=== PATIENT | male | born 1960 | race Caucasian/White ===

== ENCOUNTER 2021-05-13 02:25 | Emergency (ER) | payer MEDICAID ==
[2021-05-13] MEDS ORDERED: Acetaminophen/HYDROcodone 325-5 MG Tab PO ONE (02:26)
[2021-05-13] MEDS ORDERED: Hydrocortisone/Neomycin/Polymyxin B Ophth Susp 7.5 ML Bottle EYELF ONE (02:26)
== END 2021-05-13 03:00 | disposition home or self-care (01) ==
LOC: FB.ED 02:25
DX: S05.02XA Injury of conjunctiva and corneal abrasion without foreign body, left eye, initial encounter (principal); W50.4XXA Accidental scratch by another person, initial encounter
CPT/HCPCS: 99283; A9270-GY

== ENCOUNTER 2021-09-06 11:49 | Emergency (ER) | payer MEDICAID ==
[2021-09-06] MEDS ORDERED: predniSONE 20 MG Tab PO ONE (11:50)
[2021-09-06] MEDS ORDERED: Azithromycin 250 MG Tab PO ONE (11:50)
[2021-09-06 12:07] VITALS: BP 121/67; PULSE 72
[2021-09-06 12:41] LABS: ESTIMATED GFR 75 mL/min (>60)
== END 2021-09-06 13:10 | disposition home or self-care (01) ==
LOC: FB.ED 11:49
DX: J40 Bronchitis, not specified as acute or chronic (principal); I10 Essential (primary) hypertension; Z87.891 Personal history of nicotine dependence; Z88.1 Allergy status to other antibiotic agents; Z91.030 Bee allergy status; Z91.040 Latex allergy status; Z88.8 Allergy status to other drugs, medicaments and biological substances; Z91.041 Radiographic dye allergy status; Z20.822 Contact with and (suspected) exposure to COVID-19
CPT/HCPCS: 36415; 71046; 80048; 85025; 99282; 99284; A9270-GY; J7512; U0002

== ENCOUNTER 2022-03-01 15:17 | Emergency (ER) | payer MEDICAID ==
[2022-03-01] MEDS ORDERED: Acetaminophen/HYDROcodone 325-5 MG Tab PO ONE (15:18)
[2022-03-01] MEDS ORDERED: Morphine 4 MG/ML VIAL IM ONE (16:00)
[2022-03-01 16:18] VITALS: BP 177/98; PULSE 87
== END 2022-03-01 17:30 | disposition home or self-care (01) ==
LOC: FB.ED 15:17
DX: M54.12 Radiculopathy, cervical region (principal); G89.29 Other chronic pain; M54.2 Cervicalgia; J44.9 Chronic obstructive pulmonary disease, unspecified; I10 Essential (primary) hypertension; Z88.6 Allergy status to analgesic agent; Z91.030 Bee allergy status; Z88.1 Allergy status to other antibiotic agents; Z91.040 Latex allergy status; Z88.2 Allergy status to sulfonamides; Z88.8 Allergy status to other drugs, medicaments and biological substances
CPT/HCPCS: 96372; 99283; A9270; J2270

== ENCOUNTER 2022-03-08 17:36 | Emergency (ER) | payer MEDICAID ==
[2022-03-08] MEDS: Morphine 4 MG/ML VIAL IM ONE (19:31)
[2022-03-08] MEDS: Ondansetron 4 MG Tab.DIS PO ONE (19:53)
[2022-03-08 20:24] VITALS: BP 167/84; PULSE 76
== END 2022-03-08 20:02 | disposition home or self-care (01) ==
LOC: FB.ED 17:36
DX: M47.812 Spondylosis without myelopathy or radiculopathy, cervical region (principal); G89.29 Other chronic pain; I10 Essential (primary) hypertension; J44.9 Chronic obstructive pulmonary disease, unspecified; F17.210 Nicotine dependence, cigarettes, uncomplicated; Z96.653 Presence of artificial knee joint, bilateral; Z88.6 Allergy status to analgesic agent; Z88.8 Allergy status to other drugs, medicaments and biological substances; Z91.030 Bee allergy status; Z88.1 Allergy status to other antibiotic agents; Z88.5 Allergy status to narcotic agent; Z91.041 Radiographic dye allergy status; Z91.040 Latex allergy status; Z88.2 Allergy status to sulfonamides
CPT/HCPCS: 96372; 99283; J2270; Q0162

== ENCOUNTER 2022-03-14 20:05 | Emergency (ER) | payer MEDICAID ==
[2022-03-14] MEDS ORDERED: Morphine 10 MG/ML SDV IM ONE (20:46)
[2022-03-14 23:21] VITALS: BP 138/82; PULSE 71
== END 2022-03-14 21:30 | disposition home or self-care (01) ==
LOC: FB.ED 20:05
DX: G44.209 Tension-type headache, unspecified, not intractable (principal); E03.9 Hypothyroidism, unspecified; I10 Essential (primary) hypertension; J44.9 Chronic obstructive pulmonary disease, unspecified; Z91.030 Bee allergy status; Z88.1 Allergy status to other antibiotic agents; Z88.8 Allergy status to other drugs, medicaments and biological substances; Z91.040 Latex allergy status; Z91.041 Radiographic dye allergy status; Z88.5 Allergy status to narcotic agent; Z79.01 Long term (current) use of anticoagulants
CPT/HCPCS: 96372; 99283; J2270

== ENCOUNTER 2022-03-29 17:36 | Emergency (ER) | payer MEDICAID ==
[2022-03-29] MEDS ORDERED: Morphine 4 MG/ML VIAL IM ONE (17:44)
[2022-03-29 17:51] VITALS: BP 184/83; PULSE 67
[2022-03-29] MEDS ORDERED: Acetaminophen/oxyCODONE 325-5 MG Tab PO STA (18:43)
[2022-03-29] MEDS ORDERED: Acetaminophen/oxyCODONE 325-5 MG Tab PO ONE (18:46)
== END 2022-03-29 18:50 | disposition home or self-care (01) ==
LOC: FB.ED 17:36
DX: G89.29 Other chronic pain (principal); M25.551 Pain in right hip; M25.552 Pain in left hip; M50.90 Cervical disc disorder, unspecified, unspecified cervical region; J44.9 Chronic obstructive pulmonary disease, unspecified; I10 Essential (primary) hypertension; Z88.6 Allergy status to analgesic agent; Z91.030 Bee allergy status; Z88.1 Allergy status to other antibiotic agents; Z91.040 Latex allergy status; Z88.2 Allergy status to sulfonamides; Z79.01 Long term (current) use of anticoagulants; Z79.899 Other long term (current) drug therapy; Z86.16 Personal history of COVID-19
CPT/HCPCS: 96372; 99283; A9270-GY; J2270

== ENCOUNTER 2022-04-05 18:06 | Emergency (ER) | payer MEDICAID ==
[2022-04-05 19:07] VITALS: BP 175/88; PULSE 81
[2022-04-05] MEDS: oxyCODONE 5 MG Tab PO ONE (19:35)
== END 2022-04-05 19:41 | disposition home or self-care (01) ==
LOC: FB.ED 18:06
DX: M54.2 Cervicalgia (principal); I10 Essential (primary) hypertension; J44.9 Chronic obstructive pulmonary disease, unspecified; Z88.6 Allergy status to analgesic agent; Z88.8 Allergy status to other drugs, medicaments and biological substances; Z91.030 Bee allergy status; Z88.1 Allergy status to other antibiotic agents; Z91.041 Radiographic dye allergy status; Z91.040 Latex allergy status; Z88.5 Allergy status to narcotic agent; Z88.2 Allergy status to sulfonamides; Z79.01 Long term (current) use of anticoagulants; Z79.899 Other long term (current) drug therapy
CPT/HCPCS: 99283; A9270-GY

== ENCOUNTER 2022-04-12 18:59 | Emergency (ER) | payer MEDICAID ==
[2022-04-12 19:51] VITALS: BP 175/92; PULSE 86
== END 2022-04-12 21:45 | disposition home or self-care (01) ==
LOC: FB.ED 18:59
DX: M54.2 Cervicalgia (principal); G89.29 Other chronic pain; M62.838 Other muscle spasm; J44.9 Chronic obstructive pulmonary disease, unspecified; I10 Essential (primary) hypertension; E03.9 Hypothyroidism, unspecified; Z91.030 Bee allergy status; Z88.1 Allergy status to other antibiotic agents; Z91.040 Latex allergy status; Z88.8 Allergy status to other drugs, medicaments and biological substances; Z91.041 Radiographic dye allergy status; Z79.01 Long term (current) use of anticoagulants
CPT/HCPCS: 36415; 85610; 96372; 99283; J3360

== ENCOUNTER 2022-04-13 01:59 | Emergency (ER) | payer MEDICAID ==
[2022-04-13 02:34] VITALS: BP 187/108; PULSE 83
== END 2022-04-13 02:21 | disposition home or self-care (01) ==
LOC: FB.ED 01:59
DX: G89.29 Other chronic pain (principal); M54.2 Cervicalgia; F11.29 Opioid dependence with unspecified opioid-induced disorder; I10 Essential (primary) hypertension; J44.9 Chronic obstructive pulmonary disease, unspecified; Z88.6 Allergy status to analgesic agent; Z91.030 Bee allergy status; Z88.1 Allergy status to other antibiotic agents; Z91.041 Radiographic dye allergy status; Z91.040 Latex allergy status; Z88.2 Allergy status to sulfonamides; Z88.8 Allergy status to other drugs, medicaments and biological substances; Z79.899 Other long term (current) drug therapy; Z79.01 Long term (current) use of anticoagulants; Z86.16 Personal history of COVID-19
CPT/HCPCS: 99283

== ENCOUNTER 2022-04-25 18:49 | Emergency (ER) | payer MEDICAID ==
[2022-04-25] MEDS ORDERED: Promethazine 25 MG/ML SDV IM STA (19:45)
[2022-04-25] MEDS ORDERED: Morphine 4 MG/ML VIAL IM ONE (20:46)
[2022-04-26 02:40] VITALS: BP 155/97; PULSE 87
== END 2022-04-25 21:20 | disposition home or self-care (01) ==
LOC: FB.ED 18:49
DX: M50.30 Other cervical disc degeneration, unspecified cervical region (principal); I10 Essential (primary) hypertension; J44.9 Chronic obstructive pulmonary disease, unspecified; K21.9 Gastro-esophageal reflux disease without esophagitis; E03.9 Hypothyroidism, unspecified; Z87.891 Personal history of nicotine dependence; Z91.030 Bee allergy status; Z88.1 Allergy status to other antibiotic agents; Z88.8 Allergy status to other drugs, medicaments and biological substances; Z91.040 Latex allergy status; Z91.041 Radiographic dye allergy status; Z86.16 Personal history of COVID-19
CPT/HCPCS: 96372; 99283; J2270; J2550

== ENCOUNTER 2022-05-03 17:33 | Emergency (ER) | payer MEDICAID ==
[2022-05-03] MEDS ORDERED: Acetaminophen/oxyCODONE 325-5 MG Tab PO STA (18:15)
[2022-05-03 18:30] VITALS: BP 161/94; PULSE 98
== END 2022-05-03 18:34 | disposition home or self-care (01) ==
LOC: FB.ED 17:33
DX: M50.90 Cervical disc disorder, unspecified, unspecified cervical region (principal); I10 Essential (primary) hypertension; J44.9 Chronic obstructive pulmonary disease, unspecified; Z86.16 Personal history of COVID-19; Z91.030 Bee allergy status; Z88.1 Allergy status to other antibiotic agents; Z88.8 Allergy status to other drugs, medicaments and biological substances; Z91.040 Latex allergy status; Z91.041 Radiographic dye allergy status; Z79.01 Long term (current) use of anticoagulants; Z87.891 Personal history of nicotine dependence
CPT/HCPCS: 99283; A9270-GY

== ENCOUNTER 2022-05-10 17:18 | Emergency (ER) | payer MEDICAID ==
[2022-05-10] MEDS ORDERED: Sodium Chloride 0.9% 1,000 ML IV ONE (17:42)
[2022-05-10] MEDS ORDERED: Ketorolac 30 MG/ML SDV IVPUSH ONE (17:44)
[2022-05-10 18:04] LABS: ESTIMATED GFR 84 mL/min (>60)
[2022-05-10 21:24] VITALS: BP 176/87; PULSE 80
== END 2022-05-10 20:00 | disposition home or self-care (01) ==
LOC: FB.ED 17:18
DX: A08.4 Viral intestinal infection, unspecified (principal); E86.0 Dehydration; J44.9 Chronic obstructive pulmonary disease, unspecified; I10 Essential (primary) hypertension; Z86.16 Personal history of COVID-19; Z87.891 Personal history of nicotine dependence; Z91.030 Bee allergy status; Z88.8 Allergy status to other drugs, medicaments and biological substances; Z88.1 Allergy status to other antibiotic agents; Z91.040 Latex allergy status; Z91.041 Radiographic dye allergy status; Z79.01 Long term (current) use of anticoagulants; Z20.822 Contact with and (suspected) exposure to COVID-19
CPT/HCPCS: 36415; 80053; 81001; 83605; 83690; 85025; 85610; 86140; 96361; 96374; 99284-25; J1885; J7030; U0002

== ENCOUNTER 2022-05-17 19:11 | Emergency (ER) | payer MEDICAID ==
[2022-05-17 19:26] VITALS: BP 156/86; PULSE 103
[2022-05-17] MEDS ORDERED: Morphine 4 MG/ML VIAL IM ONE (19:39)
[2022-05-17] MEDS ORDERED: Ondansetron 4 MG/2 ML SDV IM ONE (19:39)
== END 2022-05-17 20:00 | disposition home or self-care (01) ==
LOC: FB.ED 19:11
DX: K29.90 Gastroduodenitis, unspecified, without bleeding (principal); I10 Essential (primary) hypertension; J44.9 Chronic obstructive pulmonary disease, unspecified; Z88.1 Allergy status to other antibiotic agents; Z88.2 Allergy status to sulfonamides; Z88.8 Allergy status to other drugs, medicaments and biological substances; Z91.030 Bee allergy status; Z91.040 Latex allergy status; Z79.01 Long term (current) use of anticoagulants; Z88.6 Allergy status to analgesic agent
CPT/HCPCS: 96372; 99283; J2270; J2405

== ENCOUNTER 2022-05-24 17:36 | Emergency (ER) | payer MEDICAID ==
[2022-05-24 18:27] LABS: ESTIMATED GFR 75 mL/min (>60)
[2022-05-24] MEDS ORDERED: hydrOXYzine HCl 50 MG/ML SDV IM ONE (18:47)
[2022-05-24] MEDS ORDERED: Morphine 4 MG/ML VIAL IM ONE (18:47)
[2022-05-24 19:13] VITALS: BP 156/87; PULSE 99
== END 2022-05-24 19:10 | disposition home or self-care (01) ==
LOC: FB.ED 17:36
DX: R11.2 Nausea with vomiting, unspecified (principal); R51.9 Headache, unspecified; I10 Essential (primary) hypertension; J44.9 Chronic obstructive pulmonary disease, unspecified; Z72.0 Tobacco use; Z86.16 Personal history of COVID-19; Z88.6 Allergy status to analgesic agent; Z88.8 Allergy status to other drugs, medicaments and biological substances; Z91.030 Bee allergy status; Z88.1 Allergy status to other antibiotic agents; Z91.041 Radiographic dye allergy status; Z88.5 Allergy status to narcotic agent; Z91.040 Latex allergy status; Z88.2 Allergy status to sulfonamides; Z79.899 Other long term (current) drug therapy; Z79.01 Long term (current) use of anticoagulants
CPT/HCPCS: 36415; 80053; 83605; 83735; 85025; 96372; 99284; J2270; J3410

== ENCOUNTER 2022-06-13 00:54 | Emergency (ER) | payer MEDICAID ==
[2022-06-13 01:14] VITALS: BP 171/89; PULSE 96
[2022-06-13] MEDS ORDERED: Alum Hydroxide/Mag Hydroxide 15 ML, Lidocaine 2% 15 ML PO ONE ×2 (01:32)
[2022-06-13] MEDS ORDERED: Ondansetron 4 MG Tab.DIS PO ONE (01:32)
[2022-06-13] MEDS ORDERED: Morphine 4 MG/ML VIAL IM ONE (01:32)
== END 2022-06-13 01:58 | disposition home or self-care (01) ==
LOC: FB.ED 00:54
DX: K29.70 Gastritis, unspecified, without bleeding (principal); K29.80 Duodenitis without bleeding; M50.30 Other cervical disc degeneration, unspecified cervical region; I10 Essential (primary) hypertension; Z87.891 Personal history of nicotine dependence; Z86.16 Personal history of COVID-19; Z91.030 Bee allergy status; Z88.8 Allergy status to other drugs, medicaments and biological substances; Z88.1 Allergy status to other antibiotic agents; Z91.040 Latex allergy status; Z91.041 Radiographic dye allergy status; Z79.01 Long term (current) use of anticoagulants
CPT/HCPCS: 96372; 99283; A9270; J2270; Q0162

== ENCOUNTER 2022-06-13 23:46 | Emergency (ER) | payer MEDICAID ==
[2022-06-14 00:10] VITALS: BP 161/86; PULSE 96
[2022-06-14] MEDS ORDERED: Acetaminophen/oxyCODONE 325-5 MG Tab PO STA (00:14)
== END 2022-06-14 00:20 | disposition home or self-care (01) ==
LOC: FB.ED 23:46
DX: M50.90 Cervical disc disorder, unspecified, unspecified cervical region (principal); G89.29 Other chronic pain; K21.9 Gastro-esophageal reflux disease without esophagitis; I10 Essential (primary) hypertension; J44.9 Chronic obstructive pulmonary disease, unspecified; Z86.16 Personal history of COVID-19; Z87.891 Personal history of nicotine dependence; Z79.01 Long term (current) use of anticoagulants; Z79.899 Other long term (current) drug therapy; Z88.1 Allergy status to other antibiotic agents; Z88.8 Allergy status to other drugs, medicaments and biological substances; Z91.030 Bee allergy status
CPT/HCPCS: 99283; A9270

== ENCOUNTER 2022-06-28 14:36 | Emergency (ER) | payer MEDICAID ==
[2022-06-28] MEDS ORDERED: Ketorolac 30 MG/ML SDV IM ONE (15:12)
[2022-06-28 15:53] VITALS: BP 161/90; PULSE 90
== END 2022-06-28 15:44 | disposition home or self-care (01) ==
LOC: FB.ED 14:36
DX: M47.812 Spondylosis without myelopathy or radiculopathy, cervical region (principal); I10 Essential (primary) hypertension; J44.9 Chronic obstructive pulmonary disease, unspecified; F17.210 Nicotine dependence, cigarettes, uncomplicated; K21.9 Gastro-esophageal reflux disease without esophagitis; Z79.01 Long term (current) use of anticoagulants; Z86.16 Personal history of COVID-19; Z79.899 Other long term (current) drug therapy; Z88.2 Allergy status to sulfonamides; Z91.040 Latex allergy status; Z88.1 Allergy status to other antibiotic agents; Z88.5 Allergy status to narcotic agent; Z88.8 Allergy status to other drugs, medicaments and biological substances; Z91.030 Bee allergy status
CPT/HCPCS: 96372; 99283; J1885

== ENCOUNTER 2022-06-28 19:21 | Emergency (ER) | payer MEDICAID ==
[2022-06-28] MEDS ORDERED: OLANZapine 10 MG Vial IM ONE (20:04)
[2022-06-28 21:03] VITALS: BP 155/92; PULSE 99
== END 2022-06-28 20:20 | disposition home or self-care (01) ==
LOC: FB.ED 19:21
DX: M47.812 Spondylosis without myelopathy or radiculopathy, cervical region (principal); I10 Essential (primary) hypertension; J44.9 Chronic obstructive pulmonary disease, unspecified; F17.210 Nicotine dependence, cigarettes, uncomplicated; Z86.16 Personal history of COVID-19; K21.9 Gastro-esophageal reflux disease without esophagitis; Z79.01 Long term (current) use of anticoagulants; Z79.899 Other long term (current) drug therapy; Z88.1 Allergy status to other antibiotic agents; Z88.2 Allergy status to sulfonamides; Z88.8 Allergy status to other drugs, medicaments and biological substances; Z91.040 Latex allergy status; Z91.030 Bee allergy status; Z88.5 Allergy status to narcotic agent
CPT/HCPCS: 96372; 99283; J2405

== ENCOUNTER 2022-07-05 23:18 | Emergency (ER) | payer MEDICAID ==
[2022-07-05] MEDS ORDERED: Lidocaine 4% 1 each Patch TOP STA (23:28)
[2022-07-05] MEDS ORDERED: Cyclobenzaprine 10 MG Tab PO ONE (23:28)
[2022-07-05] MEDS ORDERED: Ketorolac 30 MG/ML SDV IM STA (23:28)
[2022-07-05 23:40] VITALS: BP 150/78; PULSE 86
== END 2022-07-05 23:54 | disposition home or self-care (01) ==
LOC: FB.ED 23:18
DX: M50.30 Other cervical disc degeneration, unspecified cervical region (principal); I10 Essential (primary) hypertension; J44.9 Chronic obstructive pulmonary disease, unspecified; Z91.030 Bee allergy status; Z88.1 Allergy status to other antibiotic agents; Z88.8 Allergy status to other drugs, medicaments and biological substances; Z91.041 Radiographic dye allergy status; Z91.040 Latex allergy status; Z79.01 Long term (current) use of anticoagulants; Z86.16 Personal history of COVID-19
CPT/HCPCS: 96372; 99283; A9270-GY; J1885

== ENCOUNTER 2022-07-13 00:31 | Emergency (ER) | payer MEDICAID ==
[2022-07-13] MEDS ORDERED: OLANZapine 10 MG Vial IM ONE (01:09)
[2022-07-13 01:33] VITALS: BP 161/92; PULSE 109
== END 2022-07-13 01:25 | disposition home or self-care (01) ==
LOC: FB.ED 00:31
DX: R11.2 Nausea with vomiting, unspecified (principal); G89.29 Other chronic pain; F11.29 Opioid dependence with unspecified opioid-induced disorder; I10 Essential (primary) hypertension; J44.9 Chronic obstructive pulmonary disease, unspecified; M19.90 Unspecified osteoarthritis, unspecified site; Z72.0 Tobacco use; Z91.030 Bee allergy status; Z88.1 Allergy status to other antibiotic agents; Z91.041 Radiographic dye allergy status; Z91.040 Latex allergy status; Z88.8 Allergy status to other drugs, medicaments and biological substances; Z79.01 Long term (current) use of anticoagulants; Z79.899 Other long term (current) drug therapy
CPT/HCPCS: 96372; 99283; J2405

== ENCOUNTER 2022-07-19 20:24 | Emergency (ER) | payer MEDICAID ==
[2022-07-19] MEDS ORDERED: Ondansetron 4 MG Tab.DIS PO ONE (20:33)
[2022-07-19] MEDS ORDERED: Prochlorperazine 10 MG/2 ML SDV IVPUSH ONE (20:42)
[2022-07-19] MEDS ORDERED: Ondansetron 4 MG/2 ML SDV IVPUSH ONE (20:42)
[2022-07-19] MEDS ORDERED: Sodium Chloride 0.9% 1,000 ML IV SCH (20:45)
[2022-07-19] MEDS: Sodium Chloride 0.9% 10 ML Syringe FLUSH PRN ×2 (20:58→22:10)
[2022-07-19] MEDS ORDERED: Ketorolac 30 MG/ML SDV IVPUSH ONE (21:53)
[2022-07-19 22:07] LABS: BLOOD UREA NITROGEN,BUN 17 mg/dL (7-18); BUN/CREATININE RATIO 14.2 (9-20); CALCIUM 8.5 mg/dL (8.6-10.2); CARBON DIOXIDE,CO2 26 mmol/L (21-32); CHLORIDE,CL 97 mmol/L (100-110); CREATININE 1.2 mg/dL (0.70-1.30); EST CRCL DRUG DOSING (CG) 55.86 mL/min; ESTIMATED GFR 68 mL/min (>60); GLUCOSE RANDOM 116 mg/dL (80-116); POTASSIUM,K 3.5 mmol/L (3.5-5.3); SODIUM,NA 134 mmol/L (135-145)
[2022-07-19 22:12] LABS: ALANINE AMINOTRANSFERASE,ALT 45 U/L (12-36); ALBUMIN 3.2 g/dL (3.2-4.6); ALKALINE PHOSPHATASE 74 IU/L (56-112); AMYLASE 57 U/L (25-115); ASPARTATE AMNIOTRANSFERASE,AST 23 IU/L (5-25); PROTEIN TOTAL,TP 6.4 g/dL (6.0-8.0)
[2022-07-19 22:19] LABS: INR 0.95 (1.00-1.24); PROTHROMBIN TIME 9.8 sec (9.0-11.1)
[2022-07-19 22:21] LABS: PTT,PARTIAL THROMBOPLSTIN TIME 25.8 SECONDS (24.4-33.2)
[2022-07-19 22:22] LABS: BASOPHILS PERCENT AUTO 0.1 % (0.3-3.8); EOSINOPHILS ABSOLUTE AUTO 0.1 x10-3/uL (0.0-0.6); EOSINOPHILS PERCENT AUTO 0.6 % (0.1-6.8); HEMOGLOBIN 13.6 g/dL (12.9-17.7); LYMPHOCYTES ABSOLUTE AUTO 1.6 x10-3/uL (0.5-4.5); MEAN CORPUSCULAR HEMOGLOBIN 30.3 pg (27.0-33.3); MEAN CORPUSCULAR VOLUME 89.1 fL (80.8-98.7); MEAN PLATELET VOLUME 9.2 fL (6.7-11.0); MONOCYTES ABSOLUTE AUTO 1.1 x10-3/uL (0.0-1.2); MONOCYTES PERCENT AUTO 7.5 % (5.5-15.2); NEUTROPHILS ABSOLUTE AUTO 11.9 x10-3/uL (1.7-6.9); NEUTROPHILS PERCENT AUTO 80.8 % (40.3-71.8); PLATELET COUNT,PLT 181 x10(3)uL (117-477); RED BLOOD CELL COUNT 4.48 x10(6)uL (3.90-5.90); RED CELL DISTRIBUTION WIDTH 15.3 % (12.4-15.0); WHITE BLOOD CELL COUNT,WBC 14.7 x10-3/uL (3.2-10.1)
[2022-07-19 22:24] LABS: BILIRUBIN TOTAL 0.5 mg/dL (0.1-1.3)
[2022-07-19 22:39] LABS: APPEARANCE,URINE CLEAR (CLEAR); COLOR,URINE YELLOW (YELLOW)
[2022-07-19 22:40] LABS: BACTERIA,URINE RARE (NS); BILIRUBIN,URINE NEGATIVE (NEGATIVE); EPITHELIAL CELLS,URINE OCCASIONAL; GLUCOSE,URINE NORMAL (NORMAL); KETONES,URINE NEGATIVE (NEGATIVE); LEUKOCYTE ESTERASE,URINE NEGATIVE (NEGATIVE); NITRITE,URINE NEGATIVE (NEGATIVE); OCCULT BLOOD,URINE NEGATIVE (NEGATIVE); PROTEIN,URINE NEGATIVE (NEGATIVE); RBC,URINE 0-5 (0-5); UROBILINOGEN,URINE NORMAL (NEGATIVE); WBC,URINE 0-5 (0-5)
[2022-07-20 00:26] VITALS: BP 151/82; PULSE 95
== END 2022-07-19 22:14 | disposition home or self-care (01) ==
LOC: FB.ED 20:24
DX: R10.84 Generalized abdominal pain (principal); R11.2 Nausea with vomiting, unspecified; E87.1 Hypo-osmolality and hyponatremia; E83.51 Hypocalcemia; F11.29 Opioid dependence with unspecified opioid-induced disorder; I10 Essential (primary) hypertension; J44.9 Chronic obstructive pulmonary disease, unspecified; K21.9 Gastro-esophageal reflux disease without esophagitis; Z87.891 Personal history of nicotine dependence; Z86.16 Personal history of COVID-19; Z79.01 Long term (current) use of anticoagulants; Z79.899 Other long term (current) drug therapy; Z88.2 Allergy status to sulfonamides; Z88.8 Allergy status to other drugs, medicaments and biological substances; Z88.1 Allergy status to other antibiotic agents; Z91.041 Radiographic dye allergy status; Z91.040 Latex allergy status; Z91.030 Bee allergy status
CPT/HCPCS: 36415; 80053; 81001; 82150; 83690; 85025; 85610; 85730; 96361; 96374; 96375; 99284; J0780; J1885; J2405; J3490; J7030

== ENCOUNTER 2022-07-28 15:57 | Inpatient (IN) | payer MEDICAID ==
[2022-07-28] MEDS ORDERED: Polyethylene Glycol 3350 Powder 17 GM Packet PO PRN (17:02)
[2022-07-28] MEDS ORDERED: oxyCODONE 5 MG Tab PO PRN (17:02)
[2022-07-28] MEDS ORDERED: Baclofen 10 MG Tab PO PRN (17:09)
[2022-07-28] MEDS: Sodium Chloride 0.9% 10 ML Syringe FLUSH PRN (17:10)
[2022-07-28] MEDS: Sodium Chloride 0.9% 1,000 ML IV SCH (17:17)
[2022-07-28] MEDS: Azithromycin 500 MG in Sodium Chloride 0.9% 250 ML IV SCH (17:20)
[2022-07-28] MEDS: Benzonatate 100 MG Cap PO PRN (17:29)
[2022-07-28] MEDS: oxyCODONE 5 MG Tab PO PRN ×2 (17:31→21:27)
[2022-07-28] MEDS: Acetaminophen 325 MG Tab PO PRN (17:57)
[2022-07-28] MEDS ORDERED: Rivaroxaban 15 MG Tab PO SCH (18:00)
[2022-07-28] MEDS: Ertapenem 1 GM in Sodium Chloride 0.9% 50 ML IV SCH (18:28)
[2022-07-28] MEDS ORDERED: hydrOXYzine HCl 25 MG Tab PO PRN (19:10)
[2022-07-28] MEDS: Montelukast 10 MG Tab PO SCH (21:22)
[2022-07-28] MEDS: Sennosides 8.6 MG Tab PO SCH (21:22)
[2022-07-29] MEDS: Sodium Chloride 0.9% 1,000 ML IV SCH (02:25)
[2022-07-29] MEDS: oxyCODONE 5 MG Tab PO PRN ×5 (03:35→23:12)
[2022-07-29 06:22] LABS: BASOPHILS PERCENT AUTO 0.2 % (0.3-3.8); EOSINOPHILS ABSOLUTE AUTO 0.1 x10-3/uL (0.0-0.6); HEMATOCRIT 33.3 % (38.3-50.1); HEMOGLOBIN 11.4 g/dL (12.9-17.7); LYMPHOCYTES ABSOLUTE AUTO 1.6 x10-3/uL (0.5-4.5); LYMPHOCYTES PERCENT AUTO 15.7 % (15.8-45.3); MEAN CORPUSCULAR HEMOGLOBIN 30.9 pg (27.0-33.3); MEAN CORPUSCULAR HGB CONC 34.3 g/dL (28.7-35.3); MEAN PLATELET VOLUME 8.5 fL (6.7-11.0); MONOCYTES ABSOLUTE AUTO 0.8 x10-3/uL (0.0-1.2); MONOCYTES PERCENT AUTO 7.8 % (5.5-15.2); NEUTROPHILS ABSOLUTE AUTO 7.7 x10-3/uL (1.7-6.9); NEUTROPHILS PERCENT AUTO 75.3 % (40.3-71.8); PLATELET COUNT,PLT 155 x10(3)uL (117-477); RED CELL DISTRIBUTION WIDTH 15.4 % (12.4-15.0); WHITE BLOOD CELL COUNT,WBC 10.2 x10-3/uL (3.2-10.1)
[2022-07-29 06:26] LABS: BLOOD UREA NITROGEN,BUN 20 mg/dL (7-18); BUN/CREATININE RATIO 15.4 (9-20); CARBON DIOXIDE,CO2 25 mmol/L (21-32); CHLORIDE,CL 103 mmol/L (100-110); CREATININE 1.3 mg/dL (0.70-1.30); ESTIMATED GFR 61 mL/min (>60); GLUCOSE RANDOM 101 mg/dL (80-116); POTASSIUM,K 3.9 mmol/L (3.5-5.3); SODIUM,NA 136 mmol/L (135-145)
[2022-07-29] MEDS ORDERED: Albuterol/Ipratropium 3.0-0.5 MG/3 ML Neb Soln NEB PRN (08:41)
[2022-07-29] MEDS: Lisinopril 10 MG Tab PO SCH (08:59)
[2022-07-29] MEDS: Pantoprazole 40 MG Tab.CR PO SCH (08:59)
[2022-07-29] MEDS: Benzonatate 100 MG Cap PO PRN ×2 (08:59→20:17)
[2022-07-29] MEDS: Multivitamins with Iron/Calcium/Folic Acid/Minerals Tab PO SCH (11:56)
[2022-07-29] MEDS: Acetaminophen 325 MG Tab PO PRN (11:57)
[2022-07-29] MEDS: Azithromycin 500 MG in Sodium Chloride 0.9% 250 ML IV SCH (16:29)
[2022-07-29] MEDS: Sodium Chloride 0.9% 10 ML Syringe FLUSH PRN ×2 (16:30→17:34)
[2022-07-29] MEDS: Ertapenem 1 GM in Sodium Chloride 0.9% 50 ML IV SCH (17:34)
[2022-07-29] MEDS: Rivaroxaban 10 MG Tab PO SCH (17:37)
[2022-07-29] MEDS: Sennosides 8.6 MG Tab PO SCH (20:17)
[2022-07-29] MEDS: Montelukast 10 MG Tab PO SCH (20:17)
[2022-07-30] MEDS: Benzonatate 100 MG Cap PO PRN ×2 (05:34→21:26)
[2022-07-30] MEDS: oxyCODONE 5 MG Tab PO PRN ×5 (05:34→22:53)
[2022-07-30 06:17] LABS: BASOPHILS PERCENT AUTO 0.3 % (0.3-3.8); EOSINOPHILS ABSOLUTE AUTO 0.2 x10-3/uL (0.0-0.6); EOSINOPHILS PERCENT AUTO 2.1 % (0.1-6.8); HEMATOCRIT 33.1 % (38.3-50.1); HEMOGLOBIN 11.2 g/dL (12.9-17.7); LYMPHOCYTES ABSOLUTE AUTO 1.8 x10-3/uL (0.5-4.5); LYMPHOCYTES PERCENT AUTO 20.6 % (15.8-45.3); MEAN CORPUSCULAR HEMOGLOBIN 30.4 pg (27.0-33.3); MEAN CORPUSCULAR HGB CONC 33.7 g/dL (28.7-35.3); MEAN CORPUSCULAR VOLUME 90.1 fL (80.8-98.7); MEAN PLATELET VOLUME 8.5 fL (6.7-11.0); MONOCYTES ABSOLUTE AUTO 0.6 x10-3/uL (0.0-1.2); MONOCYTES PERCENT AUTO 7.4 % (5.5-15.2); NEUTROPHILS PERCENT AUTO 69.6 % (40.3-71.8); PLATELET COUNT,PLT 160 x10(3)uL (117-477); RED BLOOD CELL COUNT 3.68 x10(6)uL (3.90-5.90); RED CELL DISTRIBUTION WIDTH 15.5 % (12.4-15.0); WHITE BLOOD CELL COUNT,WBC 8.7 x10-3/uL (3.2-10.1)
[2022-07-30 06:27] LABS: A/G RATIO 0.9; ALANINE AMINOTRANSFERASE,ALT 19 U/L (12-36); ALBUMIN 2.6 g/dL (3.2-4.6); ALKALINE PHOSPHATASE 55 IU/L (56-112); ASPARTATE AMNIOTRANSFERASE,AST 20 IU/L (5-25); BILIRUBIN TOTAL 0.4 mg/dL (0.1-1.3); BLOOD UREA NITROGEN,BUN 13 mg/dL (7-18); BUN/CREATININE RATIO 11.8 (9-20); CALCIUM 8.3 mg/dL (8.6-10.2); CARBON DIOXIDE,CO2 28 mmol/L (21-32); CHLORIDE,CL 103 mmol/L (100-110); CREATININE 1.1 mg/dL (0.70-1.30); EST CRCL DRUG DOSING (CG) 61.22 mL/min; ESTIMATED GFR 75 mL/min (>60); GLUCOSE RANDOM 101 mg/dL (80-116); MAGNESIUM 1.5 mg/dL (1.8-2.5); PROTEIN TOTAL,TP 5.6 g/dL (6.0-8.0); SODIUM,NA 137 mmol/L (135-145)
[2022-07-30] MEDS: Pantoprazole 40 MG Tab.CR PO SCH (09:46)
[2022-07-30] MEDS: Lisinopril 10 MG Tab PO SCH (09:47)
[2022-07-30] MEDS: Azithromycin 250 MG Tab PO SCH (09:50)
[2022-07-30] MEDS: Amoxicillin/Clavulanate K 875-125 MG Tab PO SCH ×2 (09:50→20:33)
[2022-07-30] MEDS ORDERED: Magnesium Sulfate/Water 2 GM in Premix Bag 1 BAG IV ONE (10:04)
[2022-07-30] MEDS ORDERED: Sodium Chloride 0.9% 250 ML IV SCH (10:15)
[2022-07-30] MEDS: Multivitamins with Iron/Calcium/Folic Acid/Minerals Tab PO SCH (12:25)
[2022-07-30] MEDS: Rivaroxaban 10 MG Tab PO SCH (18:11)
[2022-07-30] MEDS: Montelukast 10 MG Tab PO SCH (20:33)
[2022-07-30] MEDS: Sennosides 8.6 MG Tab PO SCH (20:34)
[2022-07-31] MEDS: oxyCODONE 5 MG Tab PO PRN (05:25)
[2022-07-31 06:48] LABS: BASOPHILS PERCENT AUTO 0.4 % (0.3-3.8); EOSINOPHILS ABSOLUTE AUTO 0.2 x10-3/uL (0.0-0.6); EOSINOPHILS PERCENT AUTO 2.5 % (0.1-6.8); HEMATOCRIT 34.5 % (38.3-50.1); HEMOGLOBIN 11.7 g/dL (12.9-17.7); LYMPHOCYTES ABSOLUTE AUTO 1.6 x10-3/uL (0.5-4.5); LYMPHOCYTES PERCENT AUTO 21.6 % (15.8-45.3); MEAN CORPUSCULAR HEMOGLOBIN 30.4 pg (27.0-33.3); MEAN CORPUSCULAR HGB CONC 33.9 g/dL (28.7-35.3); MEAN CORPUSCULAR VOLUME 89.5 fL (80.8-98.7); MEAN PLATELET VOLUME 9.1 fL (6.7-11.0); MONOCYTES ABSOLUTE AUTO 0.6 x10-3/uL (0.0-1.2); MONOCYTES PERCENT AUTO 8.4 % (5.5-15.2); NEUTROPHILS ABSOLUTE AUTO 4.9 x10-3/uL (1.7-6.9); NEUTROPHILS PERCENT AUTO 67.1 % (40.3-71.8); PLATELET COUNT,PLT 172 x10(3)uL (117-477); RED BLOOD CELL COUNT 3.86 x10(6)uL (3.90-5.90); RED CELL DISTRIBUTION WIDTH 14.8 % (12.4-15.0); WHITE BLOOD CELL COUNT,WBC 7.3 x10-3/uL (3.2-10.1)
[2022-07-31 06:50] LABS: BLOOD UREA NITROGEN,BUN 8 mg/dL (7-18); BUN/CREATININE RATIO 7.3 (9-20); CALCIUM 8.4 mg/dL (8.6-10.2); CARBON DIOXIDE,CO2 28 mmol/L (21-32); CHLORIDE,CL 104 mmol/L (100-110); CREATININE 1.1 mg/dL (0.70-1.30); EST CRCL DRUG DOSING (CG) 61.22 mL/min; ESTIMATED GFR 75 mL/min (>60); GLUCOSE RANDOM 107 mg/dL (80-116); MAGNESIUM 1.5 mg/dL (1.8-2.5); POTASSIUM,K 4.2 mmol/L (3.5-5.3); SODIUM,NA 137 mmol/L (135-145)
[2022-07-31] MEDS: Lisinopril 10 MG Tab PO SCH (08:30)
[2022-07-31] MEDS: Pantoprazole 40 MG Tab.CR PO SCH (08:31)
[2022-07-31] MEDS: Amoxicillin/Clavulanate K 875-125 MG Tab PO SCH (08:34)
[2022-07-31] MEDS: Azithromycin 250 MG Tab PO SCH (08:34)
[2022-07-31 08:35] VITALS: BP 123/65
[2022-07-31 13:27] VITALS: PULSE 82
== END 2022-07-31 09:50 | disposition home or self-care (01) | DRG 871 ==
LOC: FB.MS 16:12
PROVIDERS: ADMIT Family Medicine; ATTEND Student in an Organized Health Care Education/Training Program
DX: A41.9 Sepsis, unspecified organism (principal); J18.9 Pneumonia, unspecified organism; F11.20 Opioid dependence, uncomplicated; J44.0 Chronic obstructive pulmonary disease with (acute) lower respiratory infection; N17.9 Acute kidney failure, unspecified; G43.909 Migraine, unspecified, not intractable, without status migrainosus; H54.7 Unspecified visual loss; K21.9 Gastro-esophageal reflux disease without esophagitis; F17.210 Nicotine dependence, cigarettes, uncomplicated; M19.90 Unspecified osteoarthritis, unspecified site; G89.4 Chronic pain syndrome; M81.0 Age-related osteoporosis without current pathological fracture; G62.9 Polyneuropathy, unspecified; F41.9 Anxiety disorder, unspecified; F32.A Depression, unspecified; H90.5 Unspecified sensorineural hearing loss; I12.9 Hypertensive chronic kidney disease with stage 1 through stage 4 chronic kidney disease, or unspecified chronic kidney disease; N18.9 Chronic kidney disease, unspecified; D63.1 Anemia in chronic kidney disease; Z88.0 Allergy status to penicillin; Z88.2 Allergy status to sulfonamides; Z88.8 Allergy status to other drugs, medicaments and biological substances; Z88.1 Allergy status to other antibiotic agents; Z86.718 Personal history of other venous thrombosis and embolism; Z87.11 Personal history of peptic ulcer disease; Z98.890 Other specified postprocedural states; Z90.5 Acquired absence of kidney; Z79.899 Other long term (current) drug therapy; Z79.01 Long term (current) use of anticoagulants; Z91.030 Bee allergy status; Z91.041 Radiographic dye allergy status; Z91.040 Latex allergy status
CPT/HCPCS: 36415; 80048; 80053; 83735; 85025; 87040; 94640; 99222; 99232; 99238; A9270-GY; J0456; J1335; J3475; J3490; J7030; J7050; J7620

== ENCOUNTER 2022-08-09 21:13 | Emergency (ER) | payer MEDICAID ==
[2022-08-09] MEDS ORDERED: Ketorolac 30 MG/ML SDV IM ONE (21:49)
[2022-08-09] MEDS ORDERED: hydrOXYzine HCl 50 MG/ML SDV IM ONE (21:54)
[2022-08-09 23:49] VITALS: BP 149/88; PULSE 84
== END 2022-08-09 22:50 | disposition home or self-care (01) ==
LOC: FB.ED 21:13
DX: G43.909 Migraine, unspecified, not intractable, without status migrainosus (principal); I10 Essential (primary) hypertension; J44.9 Chronic obstructive pulmonary disease, unspecified; Z91.030 Bee allergy status; Z88.1 Allergy status to other antibiotic agents; Z88.8 Allergy status to other drugs, medicaments and biological substances; Z91.040 Latex allergy status; Z91.041 Radiographic dye allergy status; Z88.5 Allergy status to narcotic agent; Z79.01 Long term (current) use of anticoagulants; Z79.899 Other long term (current) drug therapy; Z86.16 Personal history of COVID-19; Z87.891 Personal history of nicotine dependence
CPT/HCPCS: 96372; 99283; J1885; J3410